=== PATIENT | male | born 1970 | race Caucasian/White ===

== ENCOUNTER → 2024-04-07 | Day surgery (SDC) | payer OTHER ==
[2024-04-04 08:59] LABS: BASOPHILS % 0.9 % (0.0-1.0); EOSINOPHILS # (AUTO) 0.1 (0.0-0.4); EOSINOPHILS % 3.3 % (0.0-6.0); HEMATOCRIT 46.9 % (38.2-49.6); HEMOGLOBIN 15.5 g/dL (14.0-18.0); LYMPHOCYTES # (AUTO) 1.7 (1.0-3.2); LYMPHOCYTES % 40.6 % (18.0-39.1); MEAN CORPUSCULAR HEMOGLOBIN 31.4 pg (28-32); MEAN CORPUSCULAR VOLUME 95.1 fL (81-99); MONOCYTES # (AUTO) 0.5 (0.2-0.8); MONOCYTES % 12.5 % (4.4-11.3); NEUTROPHILS # (AUTO) 1.8 (2.1-6.9); NEUTROPHILS % 42.7 % (38.7-80.0); PLATELET COUNT 183 x10e3/uL (140-360); RED BLOOD COUNT 4.93 x10e6/uL (4.3-5.7); RED CELL DISTRIBUTION WIDTH 11.9 % (11.7-14.4); WHITE BLOOD COUNT 4.24 x10e3/uL (4.8-10.8)
[2024-04-04 09:36] LABS: ALBUMIN 4.3 g/dL (3.5-5.0); ALBUMIN/GLOBULIN RATIO 1.5 (0.8-2.0); ANION GAP 15.4 mmol/L (8-16); BILIRUBIN,TOTAL 0.5 mg/dL (0.2-1.2); CALCIUM 9.3 mg/dL (8.4-10.2); CREATININE, SERUM 0.97 mg/dL (0.72-1.25); POTASSIUM 4.4 mmol/L (3.5-5.1); TOTAL PROTEIN 7.1 g/dL (6.5-8.1)
[~2024-04-07] MED LIST: ACETAMINOPHEN 1000 MG/100 ML 100 ML IV ONE; CITROMA296 ML; DEXAMETHASONE SOD PHOS INJ 4 MG/ML SDV ONE; FENTANYL CITRATE/PF 100MCG/2 ML INJ ONE; KETOROLAC TROMETHAMINE 30 MG/ML VIAL ONE; LIDOCAINE HCL 2% LOCAL INJ 5 ML SDV VIAL INJ ONE; MULTI-VITAMIN1 EACH PO; ONDANSETRON HCL INJ 2MG/ML 2ML 2 MG/ML VIAL ONE; PROPOFOL IV EMULSION 10 MG/ML 20 ML VIAL ONE; SEVOFLURANE INHAL SOLN 250 ML PEN BTL ONE; TRIPLE HELIX COL1 GM; VITAMIN D31250 MCG
[2024-04-07] MEDS: CEFAZOLIN SODIUM 2 GM ONE (08:40)
[2024-04-07] MEDS: LACTATED RINGER'S 1,000 ML ONE (08:40)
[2024-04-07 11:38] VITALS: BP 130/84; PULSE 81; RESP 18; O2SAT 99
== END | disposition home or self-care (01) ==
LOC: OR 07:57
PROVIDERS: ATTEND Orthopaedic Surgery
DX: M22.42 Chondromalacia patellae, left knee (principal); S82.002A Unspecified fracture of left patella, initial encounter for closed fracture; S83.242A Other tear of medial meniscus, current injury, left knee, initial encounter; S83.282A Other tear of lateral meniscus, current injury, left knee, initial encounter; M65.162 Other infective (teno)synovitis, left knee; M67.52 Plica syndrome, left knee; X50.0XXA Overexertion from strenuous movement or load, initial encounter; Z01.810 Encounter for preprocedural cardiovascular examination; Z01.812 Encounter for preprocedural laboratory examination; Z79.1 Long term (current) use of non-steroidal anti-inflammatories (NSAID)
CPT/HCPCS: 27599; 29880; 36415; 80053; 85025; 93005; C1713; J0131; J1100; J1885; J2003; J2405; J2704; J3010; J7121; 76000